=== PATIENT | male | born 1950 | race Caucasian/White ===

== ENCOUNTER → 2021-08-10 | Outpatient (CLI) | payer MEDICARE, OTHER ==
[~2021-08-10] MED LIST: ENAL10TA PO; LVT.1T PO; METO25TA2 PO
== END ==
LOC: LABNPT 05:54
PROVIDERS: ATTEND Family Medicine
DX: Z01.812 Encounter for preprocedural laboratory examination (principal); Z20.822 Contact with and (suspected) exposure to COVID-19
CPT/HCPCS: 87636

== ENCOUNTER 2021-08-12 20:16 | Outpatient (CLI) | payer MEDICARE, OTHER | END 2021-08-13 06:15 | disposition home or self-care (01) | LOC: SLEEP 20:16 | PROVIDERS: ATTEND Family Medicine | DX: G47.33 Obstructive sleep apnea (adult) (pediatric) (principal); D45 Polycythemia vera; I10 Essential (primary) hypertension; I47.2 Ventricular tachycardia; Z99.89 Dependence on other enabling machines and devices; Z20.822 Contact with and (suspected) exposure to COVID-19 | CPT/HCPCS: 95811 ==

== ENCOUNTER 2022-01-04 13:17 | Emergency (ER) | payer MEDICARE, OTHER ==
[~2022-01-04] VITALS: Ht 175 cm; Wt 132.0 kg
--- NOTE | 2022-01-04 15:26 | Diagnostic Imaging Report ---
INDICATION: Left ankle pain. TECHNIQUE: AP, oblique, and lateral views of the left ankle were obtained. FINDINGS: There is some irregularity of the distal tip of the medial malleolus of the distal tibia which appears chronic. There is no acute fracture or acute bony abnormality seen. There is soft tissue swelling. IMPRESSION: Chronic changes of the medial malleolus of the distal tibia. No acute fracture is seen. Soft tissue swelling is noted. Dictated by: Dictated on workstation # [id number]
--- NOTE | 2022-01-04 15:30 | ED Lower Extremity ---
General Chief Complaint: Lower Extremity Stated Complaint: L ANKLE SWOLLEN Nursing Triage Note: PT AMB TO [facility] WITH WITH C/O L ANKLE SWELLING AFTER DOING YARD WORK OVER THE WEEKEND. PT NOTICED THE SWELLING ON MONDAY. PT STATES HE HAS ICED THE ANKLE WHICH NORMALLY MAKES IT FEEL BETTER BUT THE SWELLING WONT GO DOWN (JOSE M VARGAS) History of Present Illness Date Seen by Provider: January 04, 2022 Time Seen by Provider: 15:10 Initial Comments 71 year old male presents to the ER via private vehicle for left foot pain. He reports the pain is worse along the base of the foot in the arch and rates the pain as 5/10 when walking with no pain while lying in the bed at rest. The pain is worst first thing in the morning. He did yard work Monday and didn't notice any injury to the ankle at that time, but woke up Monday morning to the afore mentioned pain and swelling of the ankle. He iced it at that time and took aspirin and reports this helped his pain some. The pain and swelling has persisted and he wanted to be sure nothing was broken. He did take leftover oxycodone that he had from prior oral procedure for the pain this morning at around 10:00am and reports this helped his pain. He reports getting a new pair of shoes 2 weeks ago that he has been wearing primarily. Onset: other (3 days ago (Monday)) Pain/Injury Location: left foot (Arch of left foot) Method of Injury: unknown Modifying Factors: Improves With Cold Therapy, Improves With Pain Medication (Periodically has taken aspirin. Took Oxycodone this morning.) (JOSE M VARGAS) Onset: other (3 days ago (Monday)) Pain/Injury Location: left ankle Method of Injury: unknown Modifying Factors: Worse With Movement; Improves With Pain Medication (Periodically has taken aspirin. Took Oxycodone this morning.), Improves With Rest (VLADISLAV LITTLE MD) Allergies and Home Medications Allergies Coded Allergies: No Known Drug Allergies (Unverified , 10/13/11) Patient Home Medication List Home Medication List Reviewed: Yes (VLADISLAV LITTLE MD) Enalapril Maleate (Enalapril Maleate) 10 Mg Tablet, 10 MG PO DAILY, (Reported) Entered as Reported by: ORESTES TODD on 3/1/12 1336 Levothyroxine Sodium (Levothyroxine 100 Mcg Tab) 100 Mcg Tablet, 1 EACH PO DAILY, (Reported) Entered as Reported by: ORESTES TODD on 10/13/111335 Metoprolol Tartrate (Metoprolol Tartrate 25 Mg) 25 Mg Tablet, 1 TAB PO DAILY, (Reported) Entered as Reported by: ORESTES TODD on 10/13/111335 Review of Systems Constitutional: No chills, No fever, No weakness EENTM: No hearing loss, No vision loss Respiratory: No cough, No short of breath Cardiovascular: No chest pain, No palpitations Gastrointestinal: No abdominal pain, No diarrhea, No nausea, No vomiting Genitourinary: no symptoms reported Musculoskeletal: other (Pain in arch of left foot and swelling of the foot and ankle.) Skin: No change in color, No lesions, No rash Psychiatric/Neurological: No Symptoms Reported (JOSE M VARGAS) Musculoskeletal: joint pain, joint swelling; No muscle pain Skin: No change in color, No lesions Psychiatric/Neurological: Denies Numbness, Denies Tingling (VLADISLAV LITTLE MD) Past Assbrtm-Jiataz-Yjaihn Hx Patient Social History Tobacco Use?: No Substance use?: No Alcohol Use?: Yes Alcohol type: Beer Alcohol Frequency: Couple times a week Pt feels they are or have been: No (JOSE M VARGAS) Immunizations Up To Date First/Initial COVID19 Vaccinat: 2020 Second COVID19 Vaccination Jose Eduardo: 2020 COVID19 Vaccine Otr Owner Operator: MODERNA (JOSE M VARGAS) Past Medical History Surgery/Hospitalization HX: HTN, HYPOTHYROID Surgeries: No Respiratory: No Cardiac: Yes Hypertension Neurological: No Gastrointestinal: No Endocrine: Yes Hypothyroidsim HEENT: No Loss of Vision: Denies Cancer: No Psychosocial: No Integumentary: No Blood Disorders: No (JOSE M VARGAS) Family Medical History Reviewed Nursing Family Hx (VLADISLAV LITTLE MD) Physical Exam Vital Signs Vital Signs - First Documented 01/04/22 14:00 Temp 36.0 Pulse 87 Resp 18 B/P (MAP) 150/75 (100) (VLADISLAV LITTLE MD) Vital Signs Capillary Refill : (JOSE M VARGAS) Height, Weight, BMI Height: '" Weight: lbs. oz. kg; 43.00 BMI Method: General Appearance: WD/WN, no apparent distress, obese HEENT: PERRL/EOMI, pharynx normal Neck: non-tender, supple Cardiovascular: regular rate, rhythm, no murmur Respiratory: lungs clear, normal breath sounds, no respiratory distress Gastrointestinal: normal bowel sounds, non tender Ankles: bilateral ankle non-tender; right ankle normal inspection, right ankle normal range of motion, right ankle no evidence of injury; left ankle limited range of motion (mildly decreased flexion and extension), left ankle swelling (Left ankle appears more swollen than the right. ) Feet: left foot bone tenderness (pain along the lateral aspect of the 5th metatarsal), left foot pain (pain is located diffusely along the arch of his le ft foot. appears to be primarily in the soft tissue of this area.), left foot swelling (mild) Neurologic/Tendon: normal sensation, no evidence tendon injury; No motor deficit, No sensory deficit Neurologic/Psychiatric: alert, normal mood/affect, oriented x 3 Skin: normal color, warm/dry; No ecchymosis Lymphatic: no adenopathy (JOSE M VARGAS) General Appearance: WD/WN, no apparent distress Cardiovascular: regular rate, rhythm, no murmur Respiratory: lungs clear, normal breath sounds Ankles: left ankle limited range of motion (mildly decreased flexion and extension), left ankle swelling (Left ankle appears more swollen than the right. ) Feet: left foot bone tenderness (pain along the lateral aspect of the 5th metatarsal), left foot pain (pain is located diffusely along the arch of his left foot. appears to be primarily in the soft tissue of this area.), left foot swelling (mild), left foot other (Dorsalis pedis and posterior tibial pulses intact) Neurologic/Tendon: normal sensation, no evidence tendon injury (MARQUIS LITTLE MD) Progress/Results/Core Measures Results/Orders My Orders Orders - VLADISLAV LITTLE MD Ankle, Left, 3 Views (01/04/22 14:58) (VLADISLAV LITTLE MD) Vital Signs/I&O 01/04/22 14:00 Temp 36.0 Pulse 87 Resp 18 B/P (MAP) 150/75 (100) (VLADISLAV LITTLE MD) Blood Pressure Mean: 100 Progress Progress Note : Progress Note I have seen and evaluated the patient and agree with above except as indicated. I have directed the plan of care. Patient is here with left ankle pain after working in the yard last Monday, 3 days ago. Denies any specific injury. Swelling continued despite elevation and lnyd-liv-ddojivg medicines. Presented for concerns of fracture. Evaluation as above. X-ray ordered and reviewed by me. No acute fracture per radiology read. Discharged home with return precautions. Patient verbalized understanding of instructions and agreement with plan. (VLADISLAV LITTLE MD) Diagnostic Imaging Diagonstic Imaging: Xray Plain Films/CT/US/NM/MRI: ankle Comments [facility], [place] NAME: MARY LINDSEY [facility] REC#: [id number] PT STATUS: REG ER : 1950 PHYSICIAN: VLADISLAV LITTLE MD ADMIT DATE: 01/04/22/ER Signed Date of Exam:01/04/22 ANKLE, LEFT, 3 VIEWS INDICATION: Left ankle pain. TECHNIQUE: AP, oblique, and lateral views of the left ankle were obtained. FINDINGS: There is some irregularity of the distal tip of the medial malleolus of the distal tibia which appears chronic. There is no acute fracture or acute bony abnormality seen. There is soft tissue swelling. IMPRESSION: Chronic changes of the medial malleolus of the distal tibia. No acute fracture is seen. Soft tissue swelling is noted. Dictated by: Dictated on workstation # [id number] Dict: 01/04/22 1517 Trans: 01/04/22 1550 [id number] Interpreted by: FELY SANCHEZ MD Electronically signed by: FELY SANCHEZ MD 01/04/22 1551 Reviewed: Reviewed by Me (VLADISLAV LITTLE MD) Departure Impression Primary Impression: Left ankle sprain Qualified Codes: S93.402A - Sprain of unspecified ligament of left ankle, initial encounter Disposition: HOME, SELF-CARE Condition: Stable Departure-Patient Inst. Decision time for Depature: 16:01 (VLADISLAV LITTLE MD) Referrals: NALLELY ESCOBAR DO (PCP/Family) Primary Care Physician Patient Instructions: Ankle Sprain ED Add. Discharge Instructions: All discharge instructions reviewed with patient and/or family. Voiced understan memo. You may use Tylenol/acetaminophen 1000 mg every 6-8 hours as needed for pain. You may use ibuprofen 400 to 600 mg every 8 hours as needed for pain. You may use ice packs to area of concern. You may use Roshan wrap as needed to reduce swelling and elevation will help as well. Follow-up with your doctor in a few days for recheck as needed. Return for worse pain, swelling, weakness, difficulty with walking or other concerns as needed. JOSE M VARGAS January 04, 2022 15:30 VLADISLAV LITTLE MD January 04, 2022 16:02
[2022-01-04 16:34] VITALS: BP 151/76
== END 2022-01-04 16:25 | disposition home or self-care (01) ==
LOC: EDUNIT# 13:17 → ER 13:19
DX: S93.402A Sprain of unspecified ligament of left ankle, initial encounter (principal); M79.89 Other specified soft tissue disorders; M79.672 Pain in left foot; X58.XXXA Exposure to other specified factors, initial encounter; Y92.007 Garden or yard of unspecified non-institutional (private) residence as the place of occurrence of the external cause; Y93.H2 Activity, gardening and landscaping
CPT/HCPCS: 73610